=== PATIENT | male | born 2000 ===

== ENCOUNTER 2024-06-18 11:56 | Emergency (ER) | payer OTHER ==
[2024-06-18 12:13] VITALS: RESP 16
--- NOTE | 2024-06-18 12:46 | ED ---
Fever HPI - General Stated Complaint: body aches, fever Time Seen by Provider: 06/18/24 12:01 Source: patient, EMS, RN notes reviewed Mode of arrival: EMS - History of Present Illness Initial Comments: Patient is a 23-year-old male with medical history significant for rheumatoid arthritis presenting to the emergency department for 2 days of fever and bodyaches. He was sent in by [employer]. He believes Tmax is 101 F. He reports that he has had a cough for the last 3 days which was initially productive but today has been nonproductive. He reports 1 episode of nonbloody nonbilious emesis last night. He reports nonbloody diarrhea 2 days ago but has since resolved. Of note he missed his monthly dose of Ilaris he states that if he misses a dose he will have fever and bodyaches however he does not usually get a cough if he misses a dose. He states that his roommate has been sick with similar symptoms. He denies abdominal pain, hematuria, dysuria, melena/hematochezia. - Related Data Allergies Allergy/AdvReac Type Severity Reaction Status Date / Time adhesive AdvReac Itching Verified 06/18/24 12:16 Review of Systems ROS Statement: Those systems with pertinent positive or pertinent negative responses have been documented in the HPI. ROS Other: All systems not noted in ROS Statement are negative. Constitutional: Reports: fever, chills ENT: Reports: throat pain Respiratory: Reports: cough. Denies: wheezes Cardiovascular: Denies: chest pain, dyspnea on exertion Gastrointestinal: Reports: vomiting (1 episode of nonbloody nonbilious). Armando es: abdominal pain, nausea, diarrhea, constipation Genitourinary: Denies: urgency, dysuria, frequency, hematuria Musculoskeletal: Reports: myalgia (Diffuse) Skin: Denies: rash Past Medical History Past Medical History: Rheumatoid Arthritis (RA) History of Any Multi-Drug Resistant Organisms: None Reported Past Surgical History: Tonsillectomy Past Psychological History: No Psychological Hx Reported Smoking Status: Vaper Past Alcohol Use History: None Reported Past Drug Use History: Cocaine, Marijuana General Exam Limitations: no limitations General appearance: alert, in no apparent distress Head exam: Present: atraumatic Eye exam: Present: normal appearance Pupils: Present: normal accommodation ENT exam: Present: mucous membranes moist, normal external ear exam, other (Erythematous oropharynx) Expanded Throat exam: negative: tonsillar exudate Respiratory exam: Present: normal lung sounds bilaterally. Absent: respiratory distress, wheezes, rales, rhonchi Cardiovascular Exam: Present: regular rate, normal rhythm, normal heart sounds. Absent: systolic murmur, diastolic murmur GI/Abdominal exam: Present: soft, normal bowel sounds. Absent: distended, tenderness Extremities exam: Present: normal inspection, full ROM Back exam: Absent: rash noted Neurological exam: Present: alert, oriented X3 Psychiatric exam: Present: normal affect, normal mood Skin exam: Present: warm, dry, intact, normal color. Absent: rash Course Vital Signs 06/18/24 12:05 Temperature 100.1 F H Pulse Rate 92 Respiratory 16 Rate Blood Pressure 118/75 O2 Sat by Pulse 96 Oximetry Medical Decision Making - Medical Decision Making Was pt. sent in by a medical professional or institution (TIFFANY Ji, FISCAL ACCOUNTANT, urgent care, hospital, or assisted...) When possible be specific @ -[place] Did you speak to anyone other than the patient for history (EMS, parent, family, police, friend...)? What history was obtained from this source @ -No Did you review nursing and triage notes (agree or disagree)? Why? @ -I reviewed and agree with nursing and triage notes Were old charts reviewed (outside hosp., previous admission, EMS record, old EKG, old radiological studies, urgent care reports/EKG's, assisted records)? Report findings @ -No old charts were reviewed Differential Diagnosis? @ -Differential Fever: Pneumonia, viral URI, endocarditis, myocarditis, pericarditis, otitis, sinusitis, peritonsillar Abscess, retropharyngeal Abscess, epiglottitis, peritonitis, appendicitis, Tricia cystitis, diverticulitis, hepatitis, colitis, UTI, PID, TOA, pyelonephritis, prostatitis, epididymitis, meningitis, encephalitis, pulmonary embolism, CVA, thyroid storm, pancreatitis, adrenal crisis, cavernous sinus thrombosis, this is not meant to be an all-inclusive list. EKG interpreted by me (3pts min.). @ -As above X-rays interpreted by me (1pt min.). @ -None done CT interpreted by me (1pt min.). @ -None done U/S interpreted by me (1pt. min.). @ -None done What testing was considered but not performed or refused? (CT, X-rays, U/S, labs)? Why? @ -None What meds were considered but not given or refused? Why? @ -None Did you discuss the management of the patient with other professionals (professionals i.e. , PA, FISCAL ACCOUNTANT, lab, RT, psych nurse, outreach and education social worker, finger lift operator, teacher, loan officer assistant, pillowcase cutter)? Give summary @ -No Was smoking cessation discussed for >3mins.? @ -Yes Was critical care preformed (if so, how long)? @ -No Were there social determinants of health that impacted care today? How? (Homelessness, low income, unemployed, alcoholism, drug addiction, transportation, low edu. Level, literacy, decrease access to med. care, correction, rehab)? @ -No Was there de-escalation of care discussed even if they declined (Discuss DNR or withdrawal of care, Hospice)? DNR status @ -No What co-morbidities impacted this encounter? (DM, HTN, Smoking, COPD, CAD, Cancer, CVA, ARF, Chemo, Hep., AIDS, mental health diagnosis, sleep apnea, morbid obesity)? @ -None Was patient admitted / discharged? Hospital course, mention meds given and route, prescriptions, significant lab abnormalities, going to OR and other pertinent info. @ -Patient is a 23-year-old male who presented with 2 days of fever and myalgias. A Cepheid 4 Plex, heterophile antibody, and rapid strep test were obtained. Heterophile antibody and rapid strep tests were negative. Cepheid 4 Plex revealed influenza B. Tamiflu not indicated at this time as symptoms have been ongoing for >48 hours. Patient was given Tylenol 650 mg x 1 for pain/fever and then discharged. He was given return precautions. All questions answered. Undiagnosed new problem with uncertain prognosis? @ -No Drug Therapy requiring intensive monitoring for toxicity (Heparin, Nitro, Insulin, Cardizem)? @ -No Were any procedures done? @ -No Diagnosis/symptom? @ -Influenza B Acute, or Chronic, or Acute on Chronic? @ -Acute Uncomplicated (without systemic symptoms) or Complicated (systemic symptoms)? @ -Uncomplicated Side effects of treatment? @ -No Exacerbation, Progression, or Severe Exacerbation? @ -No Poses a threat to life or bodily function? How? (Chest pain, USA, VT, pneumonia, PE, COPD, DKA, ARF, appy, cholecystitis, CVA, Diverticulitis, Homicidal, Suicidal, threat to staff... and all critical care pts) @ -No - Lab Data Lab Results 06/18/24 06/18/24 06/18/24 Range/Units 13:14 13:14 13:33 Heterophile Antibody Negative (Negative) Influenza Type A (PCR) Not Detected (Not Detectd) Influenza Type B (PCR) Detected A (Not Detectd) RSV (PCR) Not Detected (Not Detectd) SARS-CoV-2 (PCR) Not Detected (Not Detectd) Group A Strep (PCR) NOT DETECTED (Not Detectd) Disposition Clinical Impression: Influenza Disposition: HOME SELF-CARE Condition: Stable Instructions (If sedation given, give patient instructions): Fever in Adults (ED), Influenza (ED) Additional Instructions: Every disease is a spectrum and a small chance still exists that a serious condition could develop, for this reason, please monitor yourself closely for ne w, changing or worsening symptoms, fever lasting more than 48 hours, changes in vision, new numbness or weakness fever, inability to tolerate/keep down fluids or your medications, inability to follow up with outpatient providers as instructed and should you experience these symptoms or should you have any further concerns for your wellbeing please return to the ED or call 911 immediately. PLEASE call your primary care physician as soon as possible to arrange / discuss plan for followup appointment. Appointment in the next 1-3 days is strongly encouraged if possible. Please continue your medications as prescribed. Please follow-up with your neurologist within the next 1 to 3 days regarding today's visit. PLEASE let us know here before you leave if there is anything further we can do to be of any assistance. Take care and feel better! Is patient prescribed a controlled substance at d/c from ED?: No Referrals: None,Stated [Primary Care Provider] - 1-2 days Time of Disposition: 15:25
[2024-06-18] MEDS: KETOROLAC 15 MG/ML 1 ML VIAL IVP STA (13:12)
[2024-06-18 14:16] LABS: Influenza A Not Detected (Not Detectd); Influenza B Detected (Not Detectd); RSV Not Detected (Not Detectd)
[2024-06-18 15:46] VITALS: BP 105/63; PULSE 82; TEMP 99.7
[2024-06-18] MEDS: ACETAMINOPHEN TAB 325 MG TAB PO STA (15:46)
== END 2024-06-18 15:55 | disposition home or self-care (01) ==
LOC: EC 11:56
DX: J10.1 Influenza due to other identified influenza virus with other respiratory manifestations (principal); M06.9 Rheumatoid arthritis, unspecified; F17.290 Nicotine dependence, other tobacco product, uncomplicated; Z91.09 Other allergy status, other than to drugs and biological substances
CPT/HCPCS: 36415; 87651; 86308; 87636; 99284; 96374; J1885